=== PATIENT | female | born 1985 | race Caucasian/White ===

== ENCOUNTER → 2023-07-03 10:38 | Outpatient (REF) | payer OTHER, SELFPAY ==
[2023-07-03 15:53] LABS: % Basophils 0.7 % (0-2); % Eosinophils 1.3 % (0-6); % Immature Granulocytes 0.2 % (0-0.5); % Lymphocytes 39.5 % (20.5-51.1); % Monocytes 6.6 % (1.7-9.3); % Neutrophils 51.7 % (42.2-75.2); Absolute Basophils 0.1 10^3/uL (0-0.2); Absolute Eosinophils 0.1 10^3/uL (0-0.7); Absolute Lymphocytes 3.8 10^3/uL (1.2-3.4); Absolute Monocytes 0.6 10^3/uL (0.1-0.6); Absolute Neutrophils 4.9 10^3/uL (1.4-6.5); Hematocrit 38.4 % (37.0-47.0); Hemoglobin 13.1 g/dL (12.0-16.0); Mean Corp Hgb Conc. 34.1 g/dL (33.0-37.0); Mean Corpuscular Hgb 31.3 pg (27.0-31.0); Mean Corpuscular Volume 91.9 fL (81.0-99.0); Mean Platelet Volume 10.9 fL (7.4-10.4); Nucleated Red Blood Cells % 0 %; Platelet Count 217 10^3/uL (130-400); Red Blood Cell Count 4.18 10^6/uL (4.20-5.40); White Blood Cell Count 9.5 10^3/uL (4.8-10.8)
[2023-07-03 16:02] LABS: ALT (SGPT) 21 U/L (0-35); AST (SGOT) 23 U/L (14-36); Alkaline Phosphatase 59 U/L (38-126); Blood Urea Nitrogen 12 mg/dl (7-17); Calcium 9.9 mg/dl (8.4-10.2); Carbon Dioxide 30 mmol/L (22-30); Chloride 99 mmol/L (98-107); Glucose 88 mg/dl (70-99); Potassium 4.3 mmol/L (3.5-5.1); Sodium 135 mmol/L (135-145); Total Bilirubin 0.8 mg/dl (0.2-1.3); Total Protein 6.9 g/dl (6.3-8.2); eGFR > 60.00
[2023-07-03 16:32] LABS: TSH 1.35 uIU/ml (0.47-4.68)
== END ==
LOC: HWRAD 10:38
PROVIDERS: ATTENDING PHYSICIAN Physician Assistant Medical
DX: R59.9 Enlarged lymph nodes, unspecified (principal); E01.0 Iodine-deficiency related diffuse (endemic) goiter; E03.9 Hypothyroidism, unspecified
CPT/HCPCS: 36415; 76536; 80053; 84443; 85025

== ENCOUNTER 2024-05-10 13:09 | Emergency (ER) | payer OTHER, SELFPAY ==
[2024-05-10 13:16] VITALS: BP 139/90
[2024-05-10 14:17] VITALS: BP 137/82
--- NOTE | 2024-05-10 14:22 | ED.GENMED ---
History of Present Illness
<Alvin Dhillon DO, Resident - Last Filed: 05/10/24 14:55>
General
Chief Complaint: Head Injury
Source: patient
Time Seen by Provider: 05/10/24 14:01
History of Present Illness
History of Present Illness:
39-year-old female past medical history of hypothyroidism presents after she slipped and hit the left side of her head on the edge of a tub. This happened at approximately 1 PM. Patient reports no loss of consciousness she does not take blood
thinners. In the emergency department she has a left-sided hematoma present on the zygomatic arch, she is complaining of neck pain and left-sided jaw pain. She is also endorsing some pain with vision with superior lateral movements bilaterally.
She is also endorsing tiredness and right-sided headache. No vertebral tenderness of the cervical spine.
Past History
<lAvin Dhillon DO, Resident - Last Filed: 05/10/24 14:55>
Past History
ED Past Medical History: Hypothyroidism
Review of Systems
<Alvin Dhillon DO, Resident - Last Filed: 05/10/24 14:55>
Review of Systems
Constitutional: Reports other (Tiredness)
EENT: Reports other (Left-sided TMJ pain. Left-sided facial pain, zygomatic arch. Neck pain. Denies blurry vision or difficulty focusing)
Respiratory: Reports no symptoms
Cardiac: Reports no symptoms
ABD/GI: Reports no symptoms
Musculoskeletal: Reports neck pain
Neurological: Reports headache; Denies dizzy
Phy Exam
<Alvin Dhillon DO, Resident - Last Filed: 05/10/24 14:55>
General Physical Exam
General Presentation: well appearing
General age: appears stated age
General Skin: warm and dry
ENT Exam
ENT Exam: other (Hematoma and swelling present over left zygomatic arch. Hematoma extending into left orbit. TMJ full range of motion, patient reports tenderness on opening closing of jaw)
Eye Exam
Eye Exam: visual du normal and other (Full range of motion of eyes, patient reports pain to superior lateral movements on right and left. )
Cardiovascular Exam
Cardiovascular Exam: regular rate/rhythm, no edema and no murmur
Pulmonary Exam
Pulmonary Exam: lungs clear and no respiratory distress
Gastrointestinal Exam
Gastrointestinal Exam: non tender, soft and non distended
Neurological Exam
Neurological Exam: alert, oriented x3, CN II-XII intact, no motor deficits, no sensory deficits and speech normal
Musculoskeletal Exam
Musculoskeletal Exam: neck pain and other (No vertebral or paravertebral tenderness to palpation. Full range of motion of the TMJ in all planes. Full range of motion of cervical spine flexion extension and rotation both passive and active)
Skin Exam
Skin Exam: other (Nummular eczema lesions present)
Course
<Alvin Dhillon DO, Resident - Last Filed: 05/10/24 14:55>
Orders/Labs/Results
Orders:
Orders
05/10/24 14:19
CT Facial Bones W/o Iv Contras Urgent
Comment:
Reason For Exam: Head injury, fall
CT Head W/o Iv Contrast Urgent
Comment:
Reason For Exam: Head injury
Acetaminophen [Tylenol] 1,000 mg PO NOW STA
Ibuprofen [Motrin] 600 mg PO NOW STA
05/10/24 14:25
CT Cervical Spine W/o Iv Contr Urgent
Comment:
Reason For Exam: Hit head, fall, neck pain
Vital Signs
Initial and Last Documented VS:
Initial Vital Signs
Temp Pulse Resp BP Pulse Ox
98.3 F 50 16 139/90 100
05/10/24 13:16 05/10/24 13:16 05/10/24 13:16 05/10/24 13:16 05/10/24 13:16
Last Documented Vital Signs
Temp Pulse Resp BP Pulse Ox
98.3 F 50 16 137/82 99
05/10/24 13:16 05/10/24 13:16 05/10/24 13:16 05/10/24 14:17 05/10/24 14:17
<Roly Jaeger DO - Last Filed: 05/10/24 15:43>
Orders/Labs/Results
Orders:
Orders
05/10/24 14:19
CT Facial Bones W/o Iv Contras Urgent
Comment:
Reason For Exam: Head injury, fall
CT Head W/o Iv Contrast Urgent
Comment:
Reason For Exam: Head injury
Acetaminophen [Tylenol] 1,000 mg PO NOW STA
Ibuprofen [Motrin] 600 mg PO NOW STA
05/10/24 14:25
CT Cervical Spine W/o Iv Contr Urgent
Comment:
Reason For Exam: Hit head, fall, neck pain
Vital Signs
Initial and Last Documented VS:
Initial Vital Signs
Temp Pulse Resp BP Pulse Ox
98.3 F 50 16 139/90 100
05/10/24 13:16 05/10/24 13:16 05/10/24 13:16 05/10/24 13:16 05/10/24 13:16
Last Documented Vital Signs
Temp Pulse Resp BP Pulse Ox
98.3 F 50 16 137/82 99
05/10/24 13:16 05/10/24 13:16 05/10/24 13:16 05/10/24 14:17 05/10/24 14:17
<Alvin Dhillon DO, Resident - Last Filed: 05/10/24 14:55>
MDM/Problems Addressed
Differential Diagnosis Includes:
Concussion, mechanical fall, fracture, hematoma
MDM/Problems Addressed:
39 female past medical history of hypothyroidism presents for a mechanical fall after she slipped and hit her left head on the edge of tub, no loss of consciousness she does not take blood thinners.
There is a hematoma present on the left zygomatic arch, she is also complaining of neck pain and jaw pain
Jaw has full range of motion in all planes, she is able to open and close her mouth with mild pain. No vertebral or paravertebral tenderness noted on cervical spine
Will order CT head noncontrast, CT facial bones noncontrast and CT cervical spine noncontrast to evaluate for any fractures or potential hematomas
Patient is endorsing tiredness and right-sided headache. Suspicion for mild concussion
Symptomatic management with Tylenol and Motrin, patient reports not tolerating narcotics in the past
<Roly Jaeger DO - Last Filed: 05/10/24 15:43>
*Radiology
Radiology exam reviewed: radiology read reviewed
*Pulse Oximetry
Patient hypoxic: no
*Critical Care Note
Total Time (30-74mins, 75-104mins- exclusive of procedures): Not Applicable
<Roly Jaeger DO - Last Filed: 05/10/24 15:43>
Update Note
Update Note:
imaging reports noted
ED Attending Note
<Alvin Dhillon DO, Resident - Last Filed: 05/10/24 14:55>
-
Portions of this chart may have been created with voice recognition software.� Occasional wrong word or��sound alike� substitutions may have occurred due to the inherent limitations of voice recognition software.
<Roly Jaeger DO - Last Filed: 05/10/24 15:43>
ED Attending Note
Patient seen and examined by attending physician: Yes
I performed a history and physical exam of patient and discussed management with resident, I reviewed resident's note and agree with documented findings and plan of care.: Yes
ED Attending Note:
Seen with resident, tenderness over the left temporal region status post fall onto a cast iron tub
Discharge Plan
Departure
Patient Disposition: Home (Routine Discharge)
Date of Disposition: 05/10/24
Time of Disposition: 15:42
Patient with high blood pressure during this ER visit?: No
Condition: Good
Discharge Problem:
Head injury
Instructions: Head Injury in Adults (DC), Contusion (DC)
Prescriptions:
New
ibuprofen 600 mg tablet
600 mg PO Q6H PRN (Reason: Pain) Qty: 20 0RF
Referrals:
Kamar Aparicio MD [Family Provider] - Follow up in 1 week
Interventions
Interventions:
*Risk Screen - Suicide Last Done: 05/10/24 13:16
*General Assessment Last Done: 05/10/24 13:16
*Neglect/Abuse Screening Last Done: 05/10/24 14:07
ED- Fall Risk Assessment Last Done: 05/10/24 14:07
*ED COVID-19 Vaccine History Last Done: 05/10/24 13:16
ED- Neurological Assessment Last Done: 05/10/24 14:07
ED-Skin Assessment Last Done: 05/10/24 14:07
Discharge Date and Time
Print Language: ANDORRAN
[2024-05-10 14:24] VITALS: BMI 31.8
[2024-05-10] MEDS: TYLENOL 1000 MG PO (14:27)
[2024-05-10] MEDS: MOTRIN 600 MG PO (14:27)
== END 2024-05-10 15:53 | disposition home or self-care (01) ==
LOC: EMR 13:09
PROVIDERS: EMERGENCY PHYSICIAN Emergency Medicine; FAMILY PHYSICIAN Family Medicine
DX: S05.12XA Contusion of eyeball and orbital tissues, left eye, initial encounter (principal); W01.198A Fall on same level from slipping, tripping and stumbling with subsequent striking against other object, initial encounter; E03.9 Hypothyroidism, unspecified
CPT/HCPCS: 99284; 70450; 70486; 72125

== ENCOUNTER → 2024-12-01 07:15 | Outpatient (REF) | payer OTHER, SELFPAY | LOC: PNTC 07:15 | PROVIDERS: ATTENDING PHYSICIAN Obstetrics & Gynecology | DX: Z36.0 Encounter for antenatal screening for chromosomal anomalies (principal); Z36.82 Encounter for antenatal screening for nuchal translucency | CPT/HCPCS: 76801; 76813 ==